=== PATIENT | male | born 1945 | race Native Hawaiian/Other Pacific Islander ===

== ENCOUNTER 2020-08-29 21:30 | Emergency (ER) | payer OTHER ==
[~2020-08-29] VITALS: Ht 170.2 cm; Wt 76.2 kg
[2020-08-29 22:15] LABS: PLATELET COUNT 426 K/uL (142-355)
[2020-08-29 22:24] LABS: POTASSIUM 3.5 mmol/L (3.6-5.2)
[2020-08-29 23:19] VITALS: BP 162/73; TEMP 97.8
[2020-08-30] MEDS ORDERED: ASPIRIN DR81 MG PO (00:03)
[2020-08-30] MEDS ORDERED: LORA0.5T17 PO (00:05)
[2020-08-30] MEDS ORDERED: CHOLESTYRAM PO (00:07)
[2020-08-30] MEDS ORDERED: ALBU90AE13 INH (00:10)
[2020-08-30] MEDS ORDERED: KP FOLIC ACID1 MG PO (00:16)
[2020-08-30] MEDS ORDERED: GLYCERIN ADULT2 GM PR (00:19)
[2020-08-30] MEDS ORDERED: LEVAQUIN250 MG PO (00:21)
[2020-08-30] MEDS ORDERED: LIPITOR40 MG PO (00:22)
[2020-08-30] MEDS ORDERED: IMODIUM A-D2 MG PO (00:24)
[2020-08-30] MEDS ORDERED: COZAAR100 MG PO (00:26)
[2020-08-30] MEDS ORDERED: METO-837 PO (00:29)
[2020-08-30] MEDS ORDERED: MILK OF MA400 MG/5 M PO (00:36)
[2020-08-30] MEDS ORDERED: POT CHLORIDE10 MEQ PO (00:38)
[2020-08-30] MEDS ORDERED: PANTOPRAZOLE 40MG TA PO (00:39)
[2020-08-30] MEDS ORDERED: TAMS0.4C PO (00:52)
[2020-08-30] MEDS ORDERED: B-1100 MG PO (00:53)
[2020-08-30] MEDS ORDERED: TYLENOL325 MG PO (00:54)
[2020-08-30] MEDS ORDERED: ONDA4TAB3 PO (00:55)
[2020-09-07] MEDS ORDERED: TAMS0.4C PO (14:44)
[2020-09-07] MEDS ORDERED: THIA100T8 PO (14:44)
[2020-09-07] MEDS ORDERED: PANTOPRAZOLE 40MG TA PO (14:45)
[2020-09-07] MEDS ORDERED: POTA10CA3 PO (14:45)
[2020-09-07] MEDS ORDERED: OLANZAPINE5 MG PO (14:45)
[2020-09-07] MEDS ORDERED: REMERON 15MG TAB PO (14:46)
[2020-09-07] MEDS ORDERED: OLAN2.5T2 PO (14:46)
[2020-09-07] MEDS ORDERED: METO-837 PO (14:47)
[2020-09-07] MEDS ORDERED: MEMA5TAB PO (14:48)
[2020-09-07] MEDS ORDERED: METH4TAB6 PO (14:49)
[2020-09-07] MEDS ORDERED: LOSA50TA PO (14:50)
[2020-09-07] MEDS ORDERED: ATARAX 25MG TAB PO (14:50)
[2020-09-07] MEDS ORDERED: MAGNSUS68 PO (14:50)
[2020-09-07] MEDS ORDERED: FOLI1TAB26 PO (14:50)
[2020-09-07] MEDS ORDERED: DIPH25CA90 PO (14:51)
[2020-09-07] MEDS ORDERED: FAMOTIDINE20 MG PO (14:51)
[2020-09-07] MEDS ORDERED: DONE5TAB PO (14:51)
[2020-09-07] MEDS ORDERED: ESCI10TA PO (14:51)
[2020-09-07] MEDS ORDERED: ENTERIC COATED325 MG PO (14:52)
[2020-09-07] MEDS ORDERED: ATOR20TA2 PO (14:52)
[2020-09-07] MEDS ORDERED: CHOL4POW11 PO (14:52)
[2020-09-07] MEDS ORDERED: ALBU90AE13 INH (14:52)
[2020-09-07] MEDS ORDERED: ACET-206 PO (14:53)
== END 2020-08-29 23:20 | disposition still patient (30) ==
LOC: ED 21:40
PROVIDERS: Family Medicine
DX: R46.89 Other symptoms and signs involving appearance and behavior (principal); Z11.59 Encounter for screening for other viral diseases; Z04.6 Encounter for general psychiatric examination, requested by authority; I10 Essential (primary) hypertension
CPT/HCPCS: 36415; 80053; 81000; 85007; 85027; 87635; 93005; 99283; U0003